=== PATIENT | female | born 1955 | race Two or more races ===

== ENCOUNTER 2022-07-04 17:26 | Emergency (ER) | payer OTHER ==
[~2022-07-04] VITALS: Ht 157.5 cm; Wt 58.1 kg
[2022-07-04] MEDS ORDERED: ABATINEX680 MG PO (17:41)
[2022-07-04] MEDS ORDERED: SYNTHROID75 MCG PO (17:41)
== END 2022-07-04 19:44 | disposition home or self-care (01) ==
LOC: ER 17:26
DX: K92.1 Melena (principal); Z88.0 Allergy status to penicillin; Z88.8 Allergy status to other drugs, medicaments and biological substances; E11.9 Type 2 diabetes mellitus without complications; K57.32 Diverticulitis of large intestine without perforation or abscess without bleeding

== ENCOUNTER 2022-12-16 07:45 | Inpatient (IN) | payer OTHER ==
[~2022-12-16] VITALS: Ht 157.5 cm; Wt 58.1 kg
[~2022-12-16 07:45] MED LIST: ABATINEX680 MG PO; SYNTHROID75 MCG PO
[2022-12-16] MEDS ORDERED: TOPROL XL100 M1 PO (08:49)
[2022-12-16] MEDS ORDERED: FENO PO (08:49)
[2022-12-16] MEDS ORDERED: JANUMET 50-1,01 EACH PO (08:50)
[2022-12-16] MEDS ORDERED: AVALIDE 300-121 EACH PO (08:50)
[2022-12-16] MEDS ORDERED: AMLODIP PO (08:50)
[2022-12-16] MEDS ORDERED: ROSUVASTATIN CAL5 MG PO (08:51)
[2022-12-16] MEDS ORDERED: SYMBICORT 16010.2 GM IH (08:51)
[2022-12-16] MEDS ORDERED: PEPCID20 MG PO (08:52)
[2022-12-16] MEDS ORDERED: SINGULAIR10 MG PO (08:52)
[2022-12-16 09:13] LABS: URINE APPEARANCE Clear; URINE BILIRRUBIN Negative (NEGATIVE); URINE BLOOD Negative; URINE COLOR Yellow; URINE GLUCOSE Negative (NEGATIVE); URINE LEUKOCYTE Negative; URINE NITRATE Negative; URINE PROTEIN Negative (NEGATIVE); URINE UROBILINOGEN 0.2 E.U./dl
[2022-12-16 09:14] LABS: HEMATOCRIT 40.4 % (36.0-45.00); MEAN CELL VOLUME 86.3 fL (80.00-100.00); MEAN CORPUSCULAR HEMOGLOBIN 29.8 pg (27.00-32.0); MEAN CORPUSCULAR HGB CONC 34.6 g/dl (32.0-36.0); PLATELET COUNT 308 K/uL (150-450); RED BLOOD COUNT 4.68 M/uL (4.00-6.00); RED CELL DISTRIBUTION WIDTH 14.2 % (11.5-14.5)
[2022-12-16 09:16] LABS: URINE BACTERIA 36.5 uL (0.0-1933); URINE EPITHELIAL CELLS 8.6 uL (0.0-38.8); URINE RBC 9.4 uL (0.0-20.8); URINE WBC 2.6 uL (0.0-23.2)
[2022-12-16 09:35] LABS: URINE CRYSTALS FEW /HPF
[2022-12-16 09:53] LABS: INR 0.99; PARTIAL THROMBOPLASTIN TIME 25.3 SECONDS (22.0-34.0); PROTHROMBIN TIME 10.4 SECONDS (9.0-11.5)
[2022-12-16 10:19] LABS: ALBUMIN 4.6 gm/dL (3.4-5.0); BILIRUBIN TOTAL 0.55 mg/dL (0.3-1.2); CALCIUM 9.5 mg/dL (8.5-10.1); CREATININE SERUM 0.64 mg/dL (0.55-1.02); GFR 92.84; GLOBULINA 3.8 G/DL (2.4-3.5); POTASSIUM 4.17 mEq/L (3.5-5.1); TOTAL PROTEIN 8.4 gm/dL (6.4-8.2); TSH 1.25 uIU/mL (0.358-3.74)
[2022-12-16 13:33] LABS: RH POSITIVE
[2022-12-20 15:43] LABS: HEMATOCRIT 35.7 % (36.0-45.00); HEMOGLOBIN 11.8 g/dL (12.0-15.00); MEAN CELL VOLUME 86.7 fL (80.00-100.00); MEAN CORPUSCULAR HEMOGLOBIN 28.7 pg (27.00-32.0); MEAN CORPUSCULAR HGB CONC 33.1 g/dl (32.0-36.0); PLATELET COUNT 265 K/uL (150-450); RED BLOOD COUNT 4.12 M/uL (4.00-6.00); RED CELL DISTRIBUTION WIDTH 13.5 % (11.5-14.5)
[2022-12-20 16:02] LABS: ALBUMIN 3.6 gm/dL (3.4-5.0); CALCIUM 8.2 mg/dL (8.5-10.1); CREATININE SERUM 0.43 mg/dL (0.55-1.02); GFR 146.91; MAGNESIUM 1.5 mg/dL (1.8-2.4); POTASSIUM 3.24 mEq/L (3.5-5.1)
[2022-12-21 08:46] LABS: HEMATOCRIT 29.9 % (36.0-45.00); HEMOGLOBIN 10.1 g/dL (12.0-15.00); MEAN CELL VOLUME 86.4 fL (80.00-100.00); MEAN CORPUSCULAR HEMOGLOBIN 29.1 pg (27.00-32.0); MEAN CORPUSCULAR HGB CONC 33.6 g/dl (32.0-36.0); PLATELET COUNT 252 K/uL (150-450); RED BLOOD COUNT 3.46 M/uL (4.00-6.00); RED CELL DISTRIBUTION WIDTH 13.8 % (11.5-14.5)
[2022-12-21 09:52] LABS: ALBUMIN 3.3 gm/dL (3.4-5.0); CREATININE SERUM 0.59 mg/dL (0.55-1.02); GFR 101.98; MAGNESIUM 2.2 mg/dL (1.8-2.4); POTASSIUM 3.87 mEq/L (3.5-5.1)
[2022-12-22 08:41] LABS: HEMATOCRIT 27.6 % (36.0-45.00); MEAN CELL VOLUME 87.2 fL (80.00-100.00); MEAN CORPUSCULAR HEMOGLOBIN 29.7 pg (27.00-32.0); PLATELET COUNT 240 K/uL (150-450); RED BLOOD COUNT 3.16 M/uL (4.00-6.00); RED CELL DISTRIBUTION WIDTH 13.9 % (11.5-14.5)
[2022-12-22 08:59] LABS: ALBUMIN 3.3 gm/dL (3.4-5.0); CALCIUM 8.2 mg/dL (8.5-10.1); CREATININE SERUM 0.45 mg/dL (0.55-1.02); GFR 139.4; PHOSPHOROUS 2.4 mg/dL (2.5-4.9); POTASSIUM 4.02 mEq/L (3.5-5.1)
[2022-12-22 09:01] LABS: HEMOGLOBIN 9.4 g/dL (12.0-15.00)
[2022-12-23 06:24] LABS: HEMATOCRIT 27.3 % (36.0-45.00); HEMOGLOBIN 9.3 g/dL (12.0-15.00); MEAN CELL VOLUME 86.8 fL (80.00-100.00); MEAN CORPUSCULAR HEMOGLOBIN 29.6 pg (27.00-32.0); MEAN CORPUSCULAR HGB CONC 34.1 g/dl (32.0-36.0); PLATELET COUNT 251 K/uL (150-450); RED BLOOD COUNT 3.15 M/uL (4.00-6.00)
[2022-12-23 07:04] LABS: ALBUMIN 3.3 gm/dL (3.4-5.0); CALCIUM 8.3 mg/dL (8.5-10.1); CREATININE SERUM 0.44 mg/dL (0.55-1.02); GFR 143.06; MAGNESIUM 1.8 mg/dL (1.8-2.4); PHOSPHOROUS 2.6 mg/dL (2.5-4.9); POTASSIUM 3.8 mEq/L (3.5-5.1)
== END 2022-12-23 10:31 | disposition home or self-care (01) | DRG 331 ==
LOC: O/R 12-20 05:27 → SURH 12-20 05:27
PROVIDERS: ADMIT Colon & Rectal Surgery; ATTEND Colon & Rectal Surgery
PROC: 0DBP4ZZ Excision of Rectum, Percutaneous Endoscopic Approach (ICD-10-PCS; 2022-12-20)
PROC: 0DJD8ZZ Inspection of Lower Intestinal Tract, Via Natural or Artificial Opening Endoscopic (ICD-10-PCS; 2022-12-20)
PROC: 4A1BXSH Monitoring of Gastrointestinal Vascular Perfusion using Indocyanine Green Dye, External Approach (ICD-10-PCS; 2022-12-20)
PROC: 0DTN4ZZ Resection of Sigmoid Colon, Percutaneous Endoscopic Approach (ICD-10-PCS; principal; 2022-12-20 07:00)
DX: K57.20 Diverticulitis of large intestine with perforation and abscess without bleeding (principal); R10.32 Left lower quadrant pain; D64.9 Anemia, unspecified

== ENCOUNTER → 2023-05-21 | Day surgery (SDC) | payer OTHER ==
[~2023-05-21] MED LIST changes: +AMLODIP PO; +AVALIDE 300-121 EACH PO; +DIPHENHYDRAMINE HCL 50 MG/ML VIAL 1ML IV ONE; +FENO PO; +JANUMET 50-1,01 EACH PO; +MIDAZOLAM HCL 2 MG/2 ML VIAL IV ONE; +ONDANSETRON HCL 2 MG/ML VIAL IV ONE; +PEPCID20 MG PO; +ROSUVASTATIN CAL5 MG PO; +SINGULAIR10 MG PO; +SYMBICORT 16010.2 GM IH; +TOPROL XL100 M1 PO; +fentaNYL CITRATE 50 MCG/ML AMPUL IV PUSH ONE
== END | disposition home or self-care (01) ==
LOC: ADM 05-14 13:00 → AMB-ENDOS 07:43
PROVIDERS: ATTEND Colon & Rectal Surgery
DX: K63.5 Polyp of colon (principal); K57.30 Diverticulosis of large intestine without perforation or abscess without bleeding; K64.8 Other hemorrhoids; Z88.0 Allergy status to penicillin; Z88.1 Allergy status to other antibiotic agents